=== PATIENT | male | born 1955 | race Two or more races ===

== ENCOUNTER → 2016-09-21 11:23 | Emergency (ER) | payer BC ==
[~2016-09-21 11:23] MED LIST: oxyCODONE/Acetamin 5/325 MG* TAB PO ONE
--- NOTE | 2016-09-21 12:36 | ED ---
Back Pain - HPI Summary HPI Summary: Patient presents with acute on chronic back pain. He has been followed by his PCP and had an MRI this week and has an appointment with the pain clinic for spinal injections as soon as his insurance approves them. He will see Dr. Noble tomorrow for initial consultation and treatment plan. His pain has increased without known cause or event. He takes Baclofen and anti-inflammatories which have made his activities bearable for three years following lumber surgery. He has burning that radiates down his legs after walking more than a few steps. He denies incontinence of urine or stool, and no N/T. - History of Current Complaint Chief Complaint: EDBackInjuryPain Stated Complaint: RT SIDE BACK AND LEG PAIN Time Seen by Provider: 09/21/16 11:42 Hx Obtained From: Patient Onset/Duration: Gradual Onset Onset/Duration: Started Days Ago, Atraumatic, Worse Since - last week Timing: Intermittent Severity Initially: Severe Severity Currently: Severe Pain Intensity: 10 Character: Aching, Burning Aggravating Symptom(s): Walking Alleviating Symptom(s): Position Associated Signs And Symptoms: Positive: Pain with Weight Bearing Related History: Previous Back Injury - Allergies/Home Medications Allergies/Adverse Reactions: Allergies Allergy/AdvReac Type Severity Reaction Status Date / Time No Known Allergies Allergy Verified 09/08/16 13:03 PMH/Surg Hx/FS Hx/Imm Hx Endocrine/Hematology History: Denies: Hx Diabetes Cardiovascular History: Reports: Hx Coronary Artery Disease - stent, Hx Hypercholesterolemia Denies: Hx Hypertension, Hx Pacemaker/ICD Respiratory History: Denies: Hx Asthma GI History: Reports: Hx Gastroesophageal Reflux Disease History: Denies: Hx Renal Disease Musculoskeletal History: Reports: Hx Back Problems, Other Musculoskeletal History - cervical fusion Sensory History: Reports: Hx Contacts or Glasses Denies: Hx Hearing Aid Opthamlomology History: Reports: Hx Contacts or Glasses Neurological History: Reports: Other Neuro Impairments/Disorders - PAIN CLINIC PT Psychiatric History: Denies: Hx Panic Disorder - Surgical History Surgery Procedure, Year, and Place: CARDIAC STENT PLACED 08/2004 PT TO BRING IMPLANT CARD. TAXUS EXPRESS II OTW SAFE TO 3T. CERVICAL SPINE SURGERY 2000. lumbar fusion 2013 [place] Infectious Disease History: No Infectious Disease History: Denies: Traveled Outside the in Last 30 Days - Family History Known Family History: Positive: None - Social History Occupation: Employed Full-time Lives: With Family Alcohol Use: Daily Alcohol Amount: 8 beers per day Substance Use Type: Reports: None, Prescribed Smoking Status (MU): Never Smoked Tobacco Review of Systems Negative: incontinence Positive: Arthralgia, Myalgia Negative: Weakness, Paresthesia, Numbness All Other Systems Reviewed And Are Negative: Yes Physical Exam - Summary Physical Exam Summary: Patient is laying on exam stretcher in no acute stress. Triage Information Reviewed: Yes Vital Signs On Initial Exam: Initial Vitals Temp Pulse Resp BP Pulse Ox 98.2 F 66 20 176/114 99 09/21/16 11:27 09/21/16 11:27 09/21/16 11:27 09/21/16 11:27 09/21/16 11:27 Vital Signs Reviewed: Yes Appearance: Positive: Well-Appearing, No Pain Distress, Well-Nourished Skin: Positive: Warm, Skin Color Reflects Adequate Perfusion, Dry, Soft Head/Face: Positive: Normal Head/Face Inspection Eyes: Positive: EOMI, REHAN, Conjunctiva Clear ENT: Positive: Hearing grossly normal Respiratory/Lung Sounds: Positive: Breath Sounds Present Cardiovascular: Positive: RRR Musculoskeletal: Positive: Pain @ - +SLR bilaterally Neurological: Positive: Sensory/Motor Intact, Alert, Oriented to Person Place, Time, NV Bundle Intact Distally, Abnormal Gait Psychiatric: Positive: Affect/Mood Appropriate AVPU Assessment: Alert Diagnostics - Vital Signs Vital Signs Temp Pulse Resp BP Pulse Ox 09/21/16 11:30 97.9 F 76 20 176/114 100 09/21/16 11:27 98.2 F 66 20 176/114 99 - Laboratory Lab Statement: Any lab studies that have been ordered have been reviewed, and results considered in the medical decision making process. Back Pain Course/Dx - Diagnoses Differential Diagnosis/HQI/PQRI: Positive: Aneurysm, Arthritis, Cauda Equina Syndrome, Compressive Cord Syndrome, Herniated Disc, Strain, Sprain Provider Diagnoses: Acute exacerbation of chronic low back pain Discharge - Discharge Plan Condition: Stable Disposition: HOME Prescriptions: oxyCODONE/Acetamin 5/325 MG* [Percocet 5/325 TAB*] 1 tab PO Q6H PRN #20 tab MDD 4 PRN Reason: Pain Patient Education Materials: Chronic Back Pain (ED) Forms: *Work Release Referrals: Sarbjit Encinas MD [Primary Care Provider] - Additional Instructions: Please continue your regular medications and add a pain pill as needed. Rest your back and apply heat several times daily. Call Dr. Encinas and Dr. Rolon's office to see if you can get an appointment with someone in Ce's office to discuss pain management until you can get in with Dr. Rolon's office. Return to the emergency department if symptoms worsen.
[2016-09-21 13:11] VITALS: BP 180/104
== END | disposition home or self-care (01) ==
LOC: ED 11:23
DX: M54.5 Low back pain (principal); G89.29 Other chronic pain
CPT/HCPCS: 99282; A9270-GY

== ENCOUNTER 2018-09-07 18:26 | Emergency (ER) | payer BC ==
[2018-09-07 18:36] VITALS: BP 176/100
--- NOTE | 2018-09-07 18:56 | UC ---
Shoulder Pain HPI - HPI Summary HPI Summary: Patient is a 62-year-old male who presents to the urgent care with a chief complaint of right shoulder pain. He reports that he accidentally fell backwards and landed on the right shoulder. Since then the patient is having pain in the top of the shoulder and the posterior aspect of the shoulder. The pain is moderate and he is unable to raise his right upper extremity. Patient denies any headache or neck pain. Patient has no other complaints. Patient denies any loss of consciousness and therefore. - History of Current Complaint Chief Complaint: UCUpperExtremity Stated Complaint: SHOULDER INJURY Time Seen by Provider: 09/07/18 18:35 Hx Obtained From: Patient Onset/Duration: Sudden Onset Timing: Constant Severity Initially: Moderate Severity Currently: Severe Pain Intensity: 9 - Allergies/Home Medications Allergies/Adverse Reactions: Allergies Allergy/AdvReac Type Severity Reaction Status Date / Time No Known Allergies Allergy Verified 09/07/18 18:36 Home Medications: Home Medications Zaleplon (NF) [Sonata (NF)] 5 mg PO BEDTIME PRN 09/07/18 [History Confirmed ] PMH/Surg Hx/FS Hx/Imm Hx Previously Healthy: Yes Cardiovascular History: Hypertension Psychological History: Other - Insomnia - Surgical History Surgical History: Yes Surgery Procedure, Year, and Place: CARDIAC STENT PLACED 08/2004 PT TO BRING IMPLANT CARD. TAXUS EXPRESS II OTW SAFE TO 3T. CERVICAL SPINE SURGERY 1999. lumbar fusion 2013 [place] - Family History Known Family History: Positive: None, Non-Contributory - Social History Alcohol Use: Daily Alcohol Amount: a few drinks per day Substance Use Type: None Smoking Status (MU): Never Smoked Tobacco Have You Smoked in the Last Year: No - Immunization History Most Recent Tetanus Shot: UNKNOWN ( OF 06/30/15) Review of Systems All Other Systems Reviewed And Are Negative: Yes Constitutional: Positive: Negative Skin: Positive: Negative Eyes: Positive: Negative ENT: Positive: Negative Respiratory: Positive: Negative Cardiovascular: Positive: Negative Gastrointestinal: Positive: Negative Genitourinary: Positive: Negative Motor: Positive: Negative Neurovascular: Positive: Negative Musculoskeletal: Positive: Other: - Right shoulder pain Neurological: Positive: Negative Psychological: Positive: Negative Is Patient Immunocompromised?: No Physical Exam Vital Signs: Initial Vital Signs Temp 97.1 F 09/07/18 18:31 Pulse 70 09/07/18 18:31 Resp 16 09/07/18 18:31 BP 176/100 09/07/18 18:31 Pulse Ox 99 09/07/18 18:31 Shoulder Course/Dx - Course Course Of Treatment: X-ray of the right shoulder seems to have a acromial fracture. Therefore the patient will be placed in a shoulder immobilizer, patient will be given pain medications and will follow-up with orthopedics. Patient is hemodynamically stable alert and oriented 3. - Differential Dx/Diagnosis Provider Diagnosis: Shoulder fracture, right Discharge - Sign-Out/Discharge Documenting (check all that apply): Patient Departure All imaging exams completed and their final reports reviewed: Yes - Discharge Plan Condition: Stable Disposition: HOME Prescriptions: HYDROcodone/ACETAMIN 5-325 MG* [[place] 5-325 TAB*] 1 tab PO Q6H PRN #12 tab MDD 4 PRN Reason: Pain Patient Education Materials: Shoulder Pain (ED) Referrals: Sarbjit Encinas MD [Primary Care Provider] - Anson De La Cruz MD [Medical Doctor] - Additional Instructions: Take medications as instructed f/u with orthopedics - Billing Disposition and Condition Condition: STABLE Disposition: Home
[2018-09-07] MEDS ORDERED: Ketorolac INJ* 60 MG/2 ML VIAL IM ONE (19:33)
[2018-09-07] MEDS ORDERED: HYDROcodone/ACETAMIN 5-325 MG* 1 TAB PO ONE (19:33)
== END 2018-09-07 20:11 | disposition home or self-care (01) ==
LOC: UCEAST 18:26
DX: S42.91XA Fracture of right shoulder girdle, part unspecified, initial encounter for closed fracture (principal); I10 Essential (primary) hypertension; W19.XXXA Unspecified fall, initial encounter; Y92.9 Unspecified place or not applicable
CPT/HCPCS: 96372; 99213; G0463; J1885

== ENCOUNTER → 2018-10-11 09:12 | Day surgery (SDC) | payer BC ==
[~2018-10-11 09:12] MED LIST changes: +Buffered Lidocaine 1% SYRIN* 1 ML/SYRINGE INTRADERM ONE; +Bupivacaine 0.5% W/EPI SDV* 30 ML VIAL ONE; +Dexamethasone IV* 4 MG/ML 1 ML (4 MG) ONE; +EPINEPHRINE 1 MG/ML 1 ML VIAL ONE; +Lactated Ringers 1000 ML Bag* 1,000 ML IV SCH; +Lidocaine 2% PF * 5 ML VIAL ONE; +Losartan TAB* 25 MG PO ONE; +Midazolam* 1 MG/ML 2 ML VIAL (2 MG) ONE; +Naloxone* 0.4 MG/ML 1 ML VIAL IV PRN; +Ondansetron INJ* 2 MG/ML VIAL ONE; +Propofol* 10 MG/ML 20 ML BTL ONE; +Succinylcholine* 20 MG/ML 10 ML VIAL ONE; +ceFAZolin 2 GM in NS PREMIX(*) 2 GM/100 ML BAG IVPB ONE; +fentaNYL* 50 MCG/ML 2 ML VIAL (100 MCG VIAL) ONE; +hydrALAZINE IV* 20 MG/ML VIAL ONE; +oxyCODONE/Acetamin 5/325 MG* TAB ONE; -oxyCODONE/Acetamin 5/325 MG* TAB PO ONE
[2018-10-11 20:20] VITALS: BP 166/109
--- NOTE | 2018-10-13 04:00 | OP ---
OPERATIVE REPORT: DATE OF OPERATION: 10/11/18 DATE OF : 59 SURGEON: Anson De La Cruz MD SUPPLY CHAIN CONSULTANT: PRECIOUS Love A physician assistant basketball coach was required for the length of the procedure to help with positioning, instrumentation, retraction, and closure. ANESTHESIOLOGIST: Gertrudis Noble MD ANESTHESIA: General anesthesia, regional interscalene block anesthesia, local anesthesia using Marcaine with epinephrine 10 cc. PRE-OP DIAGNOSES: 1. Right shoulder rotator cuff tendon tear, supraspinatus, infraspinatus, with significant retraction. 2. Right shoulder subacromial impingement and bursitis. 3. Right shoulder os acromiale. 4. 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 5. Right shoulder possible proximal biceps tendonitis or superior labral tear. 6. Right shoulder posterior labrum tear. POST-OP DIAGNOSES: 1. Right shoulder rotator cuff tendon tear, supraspinatus, infraspinatus, with significant retraction. 2. Right shoulder subacromial impingement and bursitis. 3. Right shoulder os acromiale. 4. 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 5. Right shoulder significant biceps tendinosis. 6. Right shoulder loss of articular cartilage, glenoid, early osteoarthritic change. OPERATIVE PROCEDURE: 1. Right shoulder arthroscopic rotator cuff tendon repair, supraspinatus, infraspinatus, using double row for anchor fixation. 2. Right shoulder arthroscopic subacromial decompression. 3. Right shoulder open proximal biceps tenodesis, subpectoral. ANTIBIOTICS: Ancef 2 g IV. IV FLUIDS: See anesthesia note. SPECIMEN: None. IMPLANTS: Mitek triple loaded 5.5 mm Healix suture anchors x2. Mitek knotless 5.5 mm suture anchors x2. Arthrex proximal biceps tendinosis button x1. [id number] TIME: 122 minutes. COMPLICATIONS: None. ESTIMATED BLOOD LOSS: Minimal. 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 He landed hard on his shoulder. The patient unfortunately recently had a son , another son had several years ago. The patient describes having "rotator cuff issues" after a neck surgery 20 years ago that we treated successfully with physical therapy. X-rays have demonstrated some elevation of the humeral head. MRIs have demonstrated rotator cuff tears of the supraspinatus and superior infraspinatus. The infraspinatus was visible retracted to just medial to the apex of the humeral head, but the supraspinatus was less easily visible to me. Radiology believe the supraspinatus and infraspinatus to be retracted similarly to a point between the glenoid and the apex of the humeral head. Only mild atrophy of the muscle of the supraspinatus present. Os acromiale, proximal biceps tendonitis, AC joint impingement, and bursitis on MRI. The patient's exam was consistent with above mentioned diagnoses. Discussed nonoperative and operative treatments. Discussed risks and complications of the surgery. The patient opted to move forward with surgery. Discussed long recovery post-operative. DESCRIPTION OF PROCEDURE: In preoperative holding, the patient signed a written consent. Operative extremity was marked in preoperative holding. The patient underwent interscalene nerve block by Dr. Noble of Anesthesia. The patient was taken back to the operating room, placed supine on the operating room table, sedated, intubate, and turned into the lateral decubitus position with the right shoulder up. Axillary roll. The neck hardened. All bony prominences were padded. Longitudinal traction, 15 pounds, right shoulder with appropriate amount of forward flexion and abduction. The right shoulder was prepped and draped. Surgical time-out was performed. Spinal needle was placed into the glenohumeral joint from posterior. 30 cc of normal saline infused. Standard posterior glenohumeral joint portal was established. Diagnostic arthroscopy commenced. Clear very retracted tears, supraspinatus and infraspinatus. No subscapularis tear. I was surprised to see articular cartilage wear, grade 1 and 2, mostly 2 at the glenoid. Biceps tear, significant inflammation and synovitis about it. Superior labral tearing with stability. Established anterior glenohumeral joint portal from anterior under direct visualization. Brought arthroscopic scissors in and released the biceps from its origin. Smoothed out the superior labrum with arthroscopic shaver. Moved portals to subacromial anterior and posterior. Established lateral and the posterolateral portals under direct visualization. Debrided subacromial bursitis using arthroscopic shaver. Studied rotator cuff. Tendons retracted all the way medial to the glenoid. I was worried based on the appearance whether the rotator cuff was repairable or not. I brought in a cuff grasper and was able to pull the tendon somewhat lateral though not all the way. I prepared the humeral head footprints. I debrided it with a VAPR and shaver. I then used an arthroscopic larry to prepare the footprint. I medialized the footprint 2 or 3 mm. I also performed minimal subacromial decompression. I smoothed out the undersurface of the anterior acromion. I made this rather minimal because I did not want to destabilize the acromion. I left the CA ligament intact. I next placed a traction stitch in the rotator cuff tendon using FiberWire #2 suture. Before and after putting tension through this traction stitch, I debrided inferior and superior to the rotator cuff tendon, releasing adhesions. This allowed me to much further lateralize the supraspinatus and infraspinatus. Also debrided the comma tissue during the partial anterior interval release. I was delighted and surprised to see that the cuff was able to be lateralized incredibly nicely over the entire humeral head and even without much tension was brought to the rotator cuff. This made me very happy. I knew that the repair was quite feasible in a relatively tension free manner. I placed 2 medial suture anchors at the superolateral skin incision poke holes. Each was triple loaded. I used an ArthThreatMetrixion suture passer to pass horizontal mattress stitches, 3 stitches from each anchor. I placed all the stitches before tying any of them. I tied them and it brought the rotator cuff nicely to bone. To increase the amount of tissue closely apposed to bone of the rotator cuff, I used a lateral row as well. I placed 2 lateral row anchors with suture from the medial row. One was anterior and one was posterior. I thought there might be just a tiny bit of tissue posteriorly that could use more suture fixation. Therefore, I used a suture from the posterior lateral row anchor and I placed a simple stitch in the posterior most aspect of the rotator cuff. I probed the repair. I moved the humerus. The repair was certainly stable. Very happy with it. I next moved to the AC joint. I considered a formal distal clavicle resection. However, seeing how loose the os acromiale seemed to be even before I had done any subacromial decompression or work in the subacromial space, I did not want to overly destabilize anything. I thought that the trauma was the main cause of his rotator cuff tear rather than AC joint pathology. I noted a spur on the inferior aspect of the distal clavicle. I removed that with an arthroscopic larry, although I did not remove 8 mm from the distal end of the clavicle. Removed instruments and fluids from the subacromial space. Closed the skin incisions with [id number] 12 stitches using nylon 4-0 suture. I placed the patient into a lazy supine position. I made a classic skin incision over the inferomedial upper arm, longitudinal. Dissected down to bicipital groove. Pulled out long head of biceps tendon. Placed retractors. Prepped the bone of the bicipital groove. Placed Beath pin unicortical. Used FiberLoop suture and placed 3 stitches in the long head of biceps tendon. Placed the biceps button. I flipped the button inside the bone and tied a knot. Used a free needle to place another tenodesis stitch. Removed excess tendon and suture. Irrigation. Removal of retractors. Closure with buried simple stitches using Vicryl 2-0 suture. Closure of the subcuticular layer with running stitch using Monocryl 4-0 suture. Mastisol and Steri-Strips, 4x4, and Tegaderm. Arthroscopy incisions received Xeroform, 4x4s, ABD, foam tape. Sling and abduction pillow. Awakened, extubated, and taken to the PACU. DISPOSITION: Wound care instructions provided. Percocet as needed for pain control. Keflex short course for infection prophylaxis, no physical therapy, sling at all times day and night. Follow up in 10 to 14 days in clinic with . [id number]/CPS #: [id number] [place]
== END | disposition home or self-care (01) ==
LOC: OR 09:12
PROVIDERS: ATTEND Orthopaedic Surgery
DX: S46.011A Strain of muscle(s) and tendon(s) of the rotator cuff of right shoulder, initial encounter (principal); M75.41 Impingement syndrome of right shoulder; M19.011 Primary osteoarthritis, right shoulder; M75.21 Bicipital tendinitis, right shoulder; G89.18 Other acute postprocedural pain; W01.0XXA Fall on same level from slipping, tripping and stumbling without subsequent striking against object, initial encounter; Y92.9 Unspecified place or not applicable; I10 Essential (primary) hypertension; E78.00 Pure hypercholesterolemia, unspecified; I25.10 Atherosclerotic heart disease of native coronary artery without angina pectoris; Z95.5 Presence of coronary angioplasty implant and graft
CPT/HCPCS: A9270-GY; C1776; J0330; J0360; J0690; J1100; J2250; J2405; J2704; J3010

== ENCOUNTER → 2019-01-29 05:44 | Day surgery (SDC) | payer BC ==
[~2019-01-29 05:44] MED LIST changes: +Bupivacaine 0.25% EPI 200,000* 30 ML SDV ONE; -Bupivacaine 0.5% W/EPI SDV* 30 ML VIAL ONE; +Dexamethasone IV* 4 MG/ML 1 ML (4 MG) IV SLOW PU ONE; +DiMENhydriNATE IV* 50 MG/ML VIAL IV PUSH PRN; +Famotidine IV* 10 MG/ML 2 ML (20 mg) IV ONE; +Famotidine IV* 10 MG/ML 2 ML (20 mg) ONE; +HYDROcodone/ACETAMIN 5-325 MG* 1 TAB PO PRN; +Ketorolac INJ* 30 MG/ML 1 ML VIAL IV PRN; -Losartan TAB* 25 MG PO ONE; +Phenylephrine 40 MCG/ML SYRINGE ONE; +ROPIVACAINE 5 MG/ML 30 ML BTL (0.5%) ONE; +ceFAZolin 2 GM PREMIX in ORs 2 GM/50 ML BAG ONE; -ceFAZolin 2 GM in NS PREMIX(*) 2 GM/100 ML BAG IVPB ONE; +fentaNYL* 50 MCG/ML 2 ML VIAL (100 MCG VIAL) IV PRN; -hydrALAZINE IV* 20 MG/ML VIAL ONE; -oxyCODONE/Acetamin 5/325 MG* TAB ONE; +oxyCODONE/Acetamin 5/325 MG* TAB PO PRN
[2019-01-29 12:47] VITALS: BP 137/78
--- NOTE | 2019-01-29 22:08 | OP ---
OPERATIVE REPORT: DATE OF OPERATION: 01/29/19 DATE OF : 59 SURGEON: Anson De La Cruz MD SKIP LOAD DRIVER: PRECIOUS [place] A physician assistant program manager was required for the length of the procedure for assistance with patient positioning, instrumentation, and closure. ANESTHESIOLOGIST: Dr. Renato Law. ANESTHESIA: General anesthesia, regional interscalene block anesthesia. PRE-OP DIAGNOSES: 1. Right shoulder rotator cuff tendon tear, supraspinatus, infraspinatus. 2. Status post prior, 10/12/18, rotator cuff repair, supraspinatus, infraspinatus along with subacromial decompression, distal clavicle resection, and open proximal biceps tenodesis. POST-OP DIAGNOSES: 1. Right shoulder rotator cuff tendon tear, supraspinatus, infraspinatus. 2. Status post prior, 10/12/18, rotator cuff repair, supraspinatus, infraspinatus along with subacromial decompression, distal clavicle resection and open proximal biceps tenodesis. OPERATIVE PROCEDURE: 1. Revision right shoulder arthroscopic rotator cuff repair, supraspinatus, infraspinatus with a double row 5-anchor repair along with Regeneten biologic patch. 2. Modifier 22 for an unusual or complex procedure given the nature of the rotator cuff repair, revision, 5 anchors, double row, plus a biologic patch. 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 History, exam, and MRI were consistent with rotator cuff tear. I performed a very successful surgery on . I noted excellent coverage by rotator cuff, excellent double row, 2 x 2 anchor repair. The patient was doing well postoperatively until he had high-energy injury, falling into a ditch in the middle of the night alongside the road. That occurred on 12/07/18. Before the fall, the patient had no pain. After the fall , the patient had significant pain. We gave the patient a period of weeks if not months to see if he would ride himself and continue to improve as he had been doing before the fall. He did not, so we ordered an MRI, which showed a retear of the rotator cuff. Discussed risks and potential complications of surgery including bleeding, infection, nerve or blood vessel injury, rotator cuff tendon retear, shoulder pain, stiffness, osteoarthritis. Because this is a revision tear and because I noted much retraction at the rotator cuff tendon at the time of the index surgery, I also consented the patient for a possible superior capsular repair and had an ArthroFLEX graft ready if that was needed in today's case. ANTIBIOTICS: Ancef 2 g IV. IV FLUIDS: See Anesthesia note. [id number] TIME: 146 minutes. SPECIMEN: None. IMPLANTS: 1. Arthrex 5.5-mm rotator cuff suture anchors, doubly loaded with suture tape, x3. 2. Arthrex lateral row SwiveLock rotator cuff anchors, x2. 3. [employer] Regeneten biologic patch, size medium x1. COMPLICATIONS: None. ESTIMATED BLOOD LOSS: Minimal. DESCRIPTION OF PROCEDURE: In preoperative holding, the patient signed written consent. Operative extremity was marked in the preoperative holding. In preoperative holding, the patient underwent an interscalene nerve block, regional. The patient was taken back to the operating room, placed supine on the operating room table. Sedated and intubated. The patient was converted to a lateral decubitus position. Axillary roll. All bony prominences padded. Beanbag was hardened. Longitudinal traction of right shoulder, 15 pounds, appropriate amount of forward flexion and abduction. Right shoulder was prepped and draped. Surgical time-out performed. Spinal needle infused into the glenohumeral joint from posterior and established a posterior glenohumeral joint portal. I started my diagnostic arthroscopy within the joint. No significant articular cartilage lesion. No loose body. Clear full- thickness tear of the supraspinatus tendon, appreciated. There did appear to be the anterior most aspect of supraspinatus tendon to be intact. I made an anterior glenohumeral joint portal under direct visualization. Introduced an arthroscopic shaver and debrided some rotator cuff interval inflamed tissue. I next moved to the subacromial space, anterior and posterior. I made a lateral subacromial portal under direct visualization. I used an arthroscopic shaver to debride some bursitic tissue about the subacromial space. I visualized the rotator cuff tendon, which was again retracted to the level of the glenoid. This included supraspinatus and much infraspinatus. The anterior most rim of the supraspinatus, some fibers, were still intact. The rotator cuff tendon tissue appeared thick but of not tremendous quality. I was able to mobilize with the rotator cuff grasper easily, tendon to bone. I placed 2 traction stitches with FiberWire #2 suture and it showed with some tension, rotator cuff could easily be brought to footprint. I prepared footprint of humeral head with an arthroscopic bur after a VAPR. Shaved just the distal most edge of the rotator cuff with an arthroscopic shaver. Decided that rotator cuff repair could be performed and that superior capsular repair will not be necessary. I used an arthroscopic shaver to debride many visible sutures from the prior operation. It should be stated that it looked as though the first operation failed when sutures broke. There was not a significant amount of rotator cuff tendon tissue still remaining to the humeral head, so I do not think that the tendon re -tore, it is that the suture tore causing this retear between these 2 surgeries. I placed a medial row anchor most posteriorly through a superolateral portal. I used a retrograde and then an antegrade suture passer to pass horizontal mattress stitches into the intact infraspinatus tendon, to superiorize that, as well as into the axilla between the intact and torn tissue. I tied as I went and tied both horizontal mattress stitches. Confirmed mobility of the supraspinatus and infraspinatus to bone. I next placed 2 suture anchors placed from superolateral portals into the medial aspect of footprint. I used antegrade suture passers to pass horizontal mattress stitches. I placed all sutures before tying them with each individual anchor. I noted that there was some laxity of the rotator cuff tendon tissue, straight anterior. Unclear if this was a dog ear or just some laxity of intact tendon from prior surgery or rotator cuff interval tissue. When I was done with the medial row repair, there was a nice cuff of tissue along the length of the tear attached to bone with some additional tissue lateral to the knots that could be brought to bone nicely with lateral row anchors. I placed 2 lateral row anchors each with 3 suture tapes from the medial row. One more anterior, the other more posterior. Rotator cuff repair seemed stable to probing and to movement of the humerus. To supplement the repair, given this is a revision surgery, given the patient's age of 63 years, and given the rather ratty, inflamed nature of the patient's tendon, I thought this would improve the likelihood of successful healing. Therefore, I placed a biologic patch. Through a lateral portal, I placed a Regeneten biologic patch size medium. I held it in place with PLLA anchors. This was very firmly placed and was very stable. I considered some subacromial decompression for healing purposes but opted not to because of the patient's os acromiale, and I did not want to destabilize him. Removed instruments and fluids from subacromial space. I closed the skin incisions with [id number] and 12 stitches using nylon 3-0 suture. Xeroform, 4x4s, ABDs, foam tape. Sling with abduction pillow. The patient was awakened, extubated, and transferred to the PACU. DISPOSITION: The patient will follow up in 10 to 14 days postoperatively. Wound care instructions provided. Percocet as needed for pain control. The patient will be in a sling at all times day and night for 8 weeks postoperative and will wait 8 weeks to start physical therapy. [id number]/[facility] #: [id number] OC
== END | disposition home or self-care (01) ==
LOC: OR 05:44
PROVIDERS: ATTEND Orthopaedic Surgery
DX: S46.011A Strain of muscle(s) and tendon(s) of the rotator cuff of right shoulder, initial encounter (principal); G89.18 Other acute postprocedural pain; W17.2XXA Fall into hole, initial encounter; Y92.89 Other specified places as the place of occurrence of the external cause; I10 Essential (primary) hypertension; E78.5 Hyperlipidemia, unspecified; I25.10 Atherosclerotic heart disease of native coronary artery without angina pectoris; Z95.5 Presence of coronary angioplasty implant and graft; K21.9 Gastro-esophageal reflux disease without esophagitis
CPT/HCPCS: C1713; J0330; J0690; J1100; J2250; J2405; J2704; J2795; J3010